=== PATIENT | female | born 1945 | race Caucasian/White ===

== ENCOUNTER 2024-04-13 14:54 | Outpatient (CLI) | payer BC, SELFPAY ==
--- NOTE | 2024-04-13 15:30 | USCV_ITS ---
Linda Waters Age: 78 Gender: F : 1945 Exam Date: 04/13/2024 15:35 Ordering Phys: Micheline Leblanc MD Technologist: [facility] [place] [facility] [place] HISTORY: Lower extremity swelling. PROCEDURES: Venous duplex imaging was performed in only the left lower extremity. In addition, the posterior tibial and peroneal trunk were evaluated. Serial compression, augmentation maneuvers, and spectral Doppler flow evaluation were performed. FINDINGS: Normal 2-D Doppler and augmentation and compressibility throughout the lower extremity venous structures. Additional imaging through the proximal calf veins also reveals no thrombus. Limited evaluation of the greater saphenous vein is patent with no thrombus. CONCLUSIONS No DVT left lower extremity. Dr. Jayne Chandler DO (Electronically Signed) Final Date: 13 April 2024 16:06 S
== END 2024-04-13 14:55 | disposition home or self-care (01) ==
LOC: RAD 14:55
PROVIDERS: Family Provider Family Medicine; PCP Family Medicine; Visit Provider Family Medicine
DX: R22.42 Localized swelling, mass and lump, left lower limb (principal)
CPT/HCPCS: 93971

== ENCOUNTER 2024-04-21 10:53 | Outpatient (CLI) | payer BC, SELFPAY ==
--- NOTE | 2024-04-21 11:00 | MR_ITS ---
WS: [id number] MRI LEFT FEMUR WITHOUT CONTRAST. COMPARISON: None Multiplanar, multisequence imaging is performed without contrast. Very large multi loculated tumor along the medial LEFT thigh is identified. There are numerous locula tions with the entire tumor extending over a length of greater than 32 cm. Mass begins in the upper t high and extends to the knee joint. Muscles are being displaced medially but mass is not definitely a rising from the muscle. The maximum transverse diameter is 11.0 cm. This mass follows fat on all sequ ences. There is very slight increased T2 signal in the wall of some of the loculated components. Ther e are no air-fluid levels. The adjacent muscles are not edematous. The bone is normal. Visualized portions of the LEFT groin demonstrates no adenopathy. MR/MR femur LT wo con* [id number] IMPRESSION: 1. Large multi loculated fatty tumor in the LEFT thigh. Tumor extends over a l ength of 32 cm with significant displacement of the thigh muscles. 2. Tumor follows fat on all sequences. 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 Follow-up postcontrast MRI should be obt ained to evaluate for enhancing nodules to indicate more aggressive sarcoma.
== END 2024-04-21 10:54 | disposition home or self-care (01) ==
LOC: RAD 10:55
PROVIDERS: Family Provider Family Medicine; PCP Family Medicine; Visit Provider Family Medicine
DX: R22.42 Localized swelling, mass and lump, left lower limb (principal); D17.79 Benign lipomatous neoplasm of other sites
CPT/HCPCS: 73718

== ENCOUNTER → 2024-06-25 13:40 | Outpatient (BNVA) | payer BC, SELFPAY | PROVIDERS: Family Provider Family Medicine; PCP Family Medicine; Visit Provider Family Medicine | DX: R50.9 Fever, unspecified (principal) | CPT/HCPCS: 81000; 85025; 87086 ==

== ENCOUNTER → 2024-07-02 11:11 | Outpatient (BNVA) | payer BC, SELFPAY | PROVIDERS: Family Provider Family Medicine; PCP Family Medicine; Visit Provider Family Medicine | DX: I10 Essential (primary) hypertension (principal); E78.01 Familial hypercholesterolemia; E03.9 Hypothyroidism, unspecified; K21.9 Gastro-esophageal reflux disease without esophagitis | CPT/HCPCS: 80053; 80061; 84439; 84443 ==

== ENCOUNTER 2024-07-28 13:17 | Outpatient (CLI) | payer MEDICARE, SELFPAY ==
--- NOTE | 2024-07-28 13:30 | XR_ITS ---
WS: [id number] DEXA (DUAL ENERGY X-RAY ABSORPTIOMETRY) Bone mineral density was performed using a ViClone machine. HISTORY: postmenopausal COMPARISON: None available. Lumbar spine BMD (L1-L4): 0.978 g/cm2 T score: -1.7 Z score: -0.4 Total hip BMD: Left: 0.810 g/cm2. T score: -1.6 Z score: -0.1 Right: 0.928 g/cm2. T score: -0.6 Z score: 0.8 10 year probability of a major osteoporotic fracture is 24.5%. XR/XR DEXA axial skeleton* [id number] IMPRESSION: OSTEOPENIA based upon the WHO classification for females.
== END 2024-07-28 13:18 | disposition home or self-care (01) ==
LOC: RAD 13:19
PROVIDERS: Family Provider Family Medicine; PCP Family Medicine; Visit Provider Family Medicine
DX: Z78.0 Asymptomatic menopausal state (principal); M85.80 Other specified disorders of bone density and structure, unspecified site
CPT/HCPCS: 77080

== ENCOUNTER 2025-01-01 10:38 | Outpatient (CLI) | payer MEDICARE, SELFPAY ==
--- NOTE | 2025-01-01 10:49 | MR_ITS ---
WS: [id number] MRI LEFT THIGH WITH AND WITHOUT CONTRAST. COMPARISON: 04/21/2024 Multiplanar, multisequence imaging is performed with and without contrast. Sagittal and axial T1 fat sat sequences post-MultiHance 17 cc IV. Since the prior examination of 04/13/2024 the large lobulated lipomatous mass has been surgically removed. No residual fatty tumors are identified. There is no enhancement along the course of the medial LEFT thigh. There is a surgical incision site noted medially with no complications. There are no associated fluid collections. No muscle edema. No significant atrophy. The mass effect noted on the muscle bundles on the prior study has resolved. MR/MR lower leg LT wo/w con [id number] IMPRESSION: 1. Status post surgical excision of the large lobulated, septated lipoma along the medial thigh. 2. No apparent complications or residual tumor identified. 3. No enhancing masses or nodules. No enhancement along the fascial planes. No postoperative fluid collections.
[2025-01-01] MEDS: gadobenate dimeglumine 20 mL vial 17 ML IV (11:51)
== END 2025-01-01 10:39 | disposition home or self-care (01) ==
LOC: RAD 10:43
PROVIDERS: PCP Family Medicine; Visit Provider Orthopaedic Surgery
DX: D48.19 Other specified neoplasm of uncertain behavior of connective and other soft tissue (principal); Z98.890 Other specified postprocedural states; Z86.03 Personal history of neoplasm of uncertain behavior
CPT/HCPCS: 73720

== ENCOUNTER 2025-01-19 10:58 | Outpatient (RCR) | payer MEDICARE, SELFPAY | END 2025-01-22 23:59 | disposition home or self-care (01) | LOC: MPT 10:58 | PROVIDERS: Visit Provider Family Medicine | DX: M54.9 Dorsalgia, unspecified (principal); M25.561 Pain in right knee; M25.562 Pain in left knee; G89.29 Other chronic pain | CPT/HCPCS: 97162 ==

== ENCOUNTER 2025-02-17 11:28 | Outpatient (RCR) | payer MEDICARE, SELFPAY | END 2025-02-21 23:59 | disposition home or self-care (01) | LOC: MPT 11:28 | PROVIDERS: Visit Provider Family Medicine | DX: M54.9 Dorsalgia, unspecified (principal); G89.29 Other chronic pain; M25.561 Pain in right knee; M25.562 Pain in left knee | CPT/HCPCS: 97110; 97112; 97140; 97530; G0283 ==

== ENCOUNTER 2025-03-23 11:44 | Outpatient (RCR) | payer MEDICARE, SELFPAY | END 2025-03-23 13:37 | disposition home or self-care (01) | LOC: MPT 11:44 | PROVIDERS: Visit Provider Family Medicine | DX: M54.9 Dorsalgia, unspecified (principal); M25.561 Pain in right knee; M25.562 Pain in left knee; G89.29 Other chronic pain | CPT/HCPCS: 97110; 97112; 97530 ==